=== PATIENT | female | born 1990 | race African-American/Black ===

== ENCOUNTER 2021-04-10 14:59 | Emergency (ER) | payer OTHER, SELFPAY ==
[~2021-04-10] VITALS: Ht 172.7 cm; Wt 59.4 kg
[~2021-04-10 14:59] MED LIST: ATRIPLA PO
[2021-04-10 15:05] VITALS: BP_SYST 146
[2021-04-10] MEDS ORDERED: NACL 0.9% 1,000 ML IV ONE (15:30)
[2021-04-10] MEDS ORDERED: KETOROLAC TROMETHAMINE 30 MG VIAL IVP ONE (15:30)
[2021-04-10] MEDS ORDERED: IBUP-1969 PO (15:54)
[2021-04-10 16:56] VITALS: BP_SYST 132
== END 2021-04-10 16:56 | disposition home or self-care (01) ==
LOC: SED 14:59
DX: R07.89 Other chest pain (principal); Z88.0 Allergy status to penicillin
CPT/HCPCS: 93005; 96361; 96374; 99283; J1885; J7030